=== PATIENT | male | born 1995 | race Caucasian/White ===

== ENCOUNTER 2025-01-15 02:55 | Emergency (ER) | payer SELFPAY ==
[~2025-01-15] VITALS: Ht 167.6 cm; Wt 77.0 kg
[2025-01-15 02:59] VITALS: O2SAT 100
[2025-01-15] MEDS: SODIUM CHLORIDE 0.9% 1,000 ML IV ONE (03:45)
[2025-01-15] MEDS: MORPHINE SULFATE 4 MG/ML INJ (FOR IV/IM USE) IV STA (04:38)
[2025-01-15] MEDS: ONDANSETRON HCL 4MG/2ML INJ IV STA (04:38)
[2025-01-15 04:46] LABS: BASOPHILS % 0.7 % (0.0-2.0); EOSINOPHILS % 1.7 % (0.0-5.0); HEMATOCRIT. 37.3 % (42.0-52.0); HEMOGLOBIN. 13.1 g/dL (14.0-18.0); LYMPHOCYTES % 17.3 % (20.0-50.0); MEAN CORPUSCULAR HEMOGLOBIN 33.7 pg (28.0-32.0); MEAN CORPUSCULAR HGB CONC 35.1 g/dL (31.0-37.0); MEAN CORPUSCULAR VOLUME 96.1 fL (80.0-94.0); MEAN PLATELET VOLUME 8.4 fl (7.4-10.4); MONOCYTES % 5.4 % (2.0-8.0); NEUTROPHILS % 74.9 % (40.0-76.0); PLATELET 285 x1000/uL (130-400); RED BLOOD CELL COUNT 3.88 mill/uL (4.7-6.1); RED CELL DISTRIBUTION WIDTH 13.1 % (11.6-14.6); WHITE BLOOD COUNT 8.2 x1000/uL (4.5-11.0)
[2025-01-15 04:52] LABS: CHLORIDE 103 mEq/L (98-107); POTASSIUM 3.4 mEq/L (3.5-5.1); SODIUM 142 mEq/L (136-145)
[2025-01-15 04:53] LABS: CARBON DIOXIDE 32 mEq/L (21-32)
[2025-01-15 04:58] LABS: CREATININE 0.9 mg/dL (0.6-1.3); GLUCOSE 113 mg/dL (70-105); UREA NITROGEN BLOOD 18 mg/dL (9-23)
[2025-01-15] MEDS: LEVETIRACETAM 500MG PREMIX 100 ML IV ONE (04:58)
[2025-01-15 05:38] VITALS: BP 136/83; PULSE 63; RESP 12; TEMP 36.8; O2SAT 98
[2025-01-15] MEDS ORDERED: IOHEXOL-300 100 ML BOTTLE ONE (07:01)
== END 2025-01-15 05:46 | disposition short-term general hospital (02) ==
LOC: ER 02:55
DX: S06.5XAA Traumatic subdural hemorrhage with loss of consciousness status unknown, initial encounter (principal); V49.40XA Driver injured in collision with unspecified motor vehicles in traffic accident, initial encounter; Y93.89 Activity, other specified; Y92.410 Unspecified street and highway as the place of occurrence of the external cause; Y99.8 Other external cause status
CPT/HCPCS: 99291; 70450; 96365; 96375; 96361; 80048; 85025; 36415; 70486; 71260; 72125; 74177; Q9967; J1953; J2405; J2270; J7030